=== PATIENT | female | born 1985 | race Asian ===

== ENCOUNTER 2019-05-23 18:33 | Outpatient (CLI) | payer OTHER ==
[2019-05-23 19:16] LABS: BASOPHILS % (AUTO) 0.3 % (0.0-2.0); EOSINOPHILS # (AUTO) 0.3 K/uL (0.0-0.4); EOSINOPHILS % (AUTO) 2.1 % (0.0-4.0); HEMATOCRIT 37.7 % (36-48); HEMOGLOBIN 12.5 g/dL (12.0-16.0); LYMPHOCYTES # (AUTO) 2.8 K/uL (1.0-5.5); LYMPHOCYTES % (AUTO) 22.2 % (20.5-51.5); MEAN CORPUSCULAR HEMOGLOBIN 29 pg (27-31); MEAN CORPUSCULAR HGB CONC 33 % (32-36); MEAN CORPUSCULAR VOLUME 88 fL (79.0-98.0); MONOCYTES # (AUTO) 0.8 K/uL (0.0-1.0); MONOCYTES % (AUTO) 6.3 % (1.7-9.3); NEUTROPHILS # (AUTO) 8.8 K/uL (1.8-7.7); NEUTROPHILS % (AUTO) 69.1 % (40.0-70.0); PLATELET COUNT (AUTO) 296 K/uL (130-430); RED BLOOD CELL COUNT(AUTO) 4.29 MIL/uL (4.2-6.2); RED CELL DISTRIBUTION WIDTH 13.7 % (9.0-15.0); WHITE BLOOD COUNT (AUTO) 12.7 K/uL (4.8-10.8)
[2019-05-25 08:17] LABS: HEPATITIS B SURFACE AG Negative (Negative)
[2019-05-25 12:37] LABS: RUBELLA AB, IgG <0.90 index (Immune >0.99)
[2019-05-27 15:12] LABS: RUBELLA AB, IgM <20.0 AU/mL (0.0-19.9)
== END 2019-05-23 21:12 | disposition home or self-care (01) ==
LOC: SLB 18:33
PROVIDERS: ATTEND Specialist
DX: Z34.80 Encounter for supervision of other normal pregnancy, unspecified trimester (principal); Z3A.00 Weeks of gestation of pregnancy not specified
CPT/HCPCS: 36415; 85025; 86592; 86762; 86886; 86900; 86901; 87340

== ENCOUNTER 2019-09-02 13:24 | Inpatient (IN) | payer OTHER ==
[~2019-09-02] VITALS: Ht 165.1 cm; Wt 61.7 kg
[2019-09-02] MEDS ORDERED: OXYTOCIN/0.9 % SODIUM CHLORIDE 1,000 ML IV SCH (13:55)
[2019-09-02] MEDS ORDERED: LR 1,000 ML IV ONE (13:55)
[2019-09-02] MEDS ORDERED: LR 1,000 ML IV SCH (13:55)
[2019-09-02] MEDS ORDERED: AMPICILLIN SODIUM 2 GM in NS 100 ML IV ONE (14:00)
[2019-09-02] MEDS ORDERED: TERBUTALINE SULFATE 1 MG/ML VIAL SUBCUT ONE (14:00)
[2019-09-02] MEDS ORDERED: NALBUPHINE HCL 10 MG/ML AMP IVP PRN (14:00)
[2019-09-02 14:17] LABS: BASOPHILS # (AUTO) 0.1 K/uL (0.0-0.2); BASOPHILS % (AUTO) 0.5 % (0.0-2.0); EOSINOPHILS # (AUTO) 0.2 K/uL (0.0-0.4); EOSINOPHILS % (AUTO) 1.5 % (0.0-4.0); HEMATOCRIT 38.5 % (36-48); HEMOGLOBIN 13.3 g/dL (12.0-16.0); LYMPHOCYTES # (AUTO) 1.8 K/uL (1.0-5.5); LYMPHOCYTES % (AUTO) 14.4 % (20.5-51.5); MEAN CORPUSCULAR HEMOGLOBIN 30 pg (27-31); MEAN CORPUSCULAR HGB CONC 35 % (32-36); MEAN CORPUSCULAR VOLUME 86 fL (79.0-98.0); MONOCYTES # (AUTO) 1.3 K/uL (0.0-1.0); MONOCYTES % (AUTO) 10.1 % (1.7-9.3); NEUTROPHILS # (AUTO) 9.3 K/uL (1.8-7.7); NEUTROPHILS % (AUTO) 73.5 % (40.0-70.0); PLATELET COUNT (AUTO) 212 K/uL (130-430); RED BLOOD CELL COUNT(AUTO) 4.46 MIL/uL (4.2-6.2); RED CELL DISTRIBUTION WIDTH 12.7 % (9.0-15.0); WHITE BLOOD COUNT (AUTO) 12.7 K/uL (4.8-10.8)
[2019-09-02] MEDS ORDERED: AMPICILLIN SODIUM 2 GM VIAL ONE (14:31)
[2019-09-02] MEDS ORDERED: fentaNYL CITRATE/PF 100 MCG/2 ML AMP EP ONE (15:45)
[2019-09-02] MEDS ORDERED: FENT2mCg/mL-ROPIVA0.2%/NS EPID 200 ML EP SCH (15:45)
[2019-09-02] MEDS ORDERED: fentaNYL CITRATE/PF 100 MCG/2 ML AMP ONE (15:46)
[2019-09-02] MEDS ORDERED: ROPIVACAINE HCL/PF 0.2% 200 ML ONE (15:47)
[2019-09-02] MEDS ORDERED: LR 500 ML IV ONE (16:13)
[2019-09-02] MEDS ORDERED: ePHEDrine sulfate 50 MG/ML VIAL IVP PRN (16:15)
[2019-09-02 17:38] VITALS: BP_SYST 112
[2019-09-02] MEDS: AMPICILLIN SODIUM 1 GM in NS 50 ML IV SCH (18:14)
[2019-09-02] MEDS ORDERED: AMPICILLIN SODIUM 1 GM VIAL ONE (22:22)
[2019-09-03] MEDS: AMPICILLIN SODIUM 1 GM in NS 50 ML IV SCH ×2 (02:30→10:15)
[2019-09-03] MEDS ORDERED: ROPIVACAINE HCL/PF 0.2% 200 ML ONE (07:11)
[2019-09-03] MEDS: METHIMAZOLE 5 MG TABLET PO SCH ×2 (08:18→21:35)
[2019-09-03] MEDS ORDERED: OXYCODONE/ACETAMINOPHEN 5-325 TABLET ONE (12:52)
[2019-09-03] MEDS ORDERED: OXYTOCIN/0.9 % SODIUM CHLORIDE 1,000 ML IV ONE (15:17)
[2019-09-03] MEDS ORDERED: ANUSOL 1 EA SUPP.RECT (PREPARATION H) RC PRN (15:30)
[2019-09-03] MEDS ORDERED: LANOLIN 7 GM OINT. TP PRN (15:30)
[2019-09-03] MEDS ORDERED: RHO(D) IMMUNE GLOBULIN/MALTOSE 1500 UNITS/1.3 ML (WINHRO) IM PRN (15:30)
[2019-09-03] MEDS ORDERED: WITCH HAZEL LEAF 1 MED.PAD MED.PAD TP PRN (15:30)
[2019-09-03] MEDS ORDERED: HYDROcodone/ACETAMIN 5-325 MG TAB (NORCO/ VICODIN) PO PRN (15:30)
[2019-09-03] MEDS ORDERED: OXYCODONE/ACETAMINOPHEN 5-325 TABLET PO PRN ×2 (15:30)
[2019-09-03] MEDS ORDERED: DIPH-TET-PERTUS Vaccine 0.5 ML VIAL (ADACEL) I.M. PRN (15:30)
[2019-09-03] MEDS ORDERED: MEASLES,MUMPS&RUBELLA VACC/PF 12500 UNIT/0.5 ML VIAL SUBQ PRN (15:30)
[2019-09-03] MEDS ORDERED: DERMOPLAST SPRAY TP PRN (15:30)
[2019-09-03] MEDS ORDERED: WITCH HAZEL LEAF 1 MED.PAD MED.PAD TP ONE (15:39)
[2019-09-03] MEDS ORDERED: DERMOPLAST SPRAY TP ONE (15:39)
[2019-09-03] MEDS: IBUPROFEN 600 MG TABLET PO SCH ×2 (18:12→23:40)
[2019-09-03] MEDS: DOCUSATE SODIUM 100 MG CAPSULE PO PRN (18:12)
[2019-09-03] MEDS ORDERED: TEMAZEPAM 15 MG CAPSULE PO PRN (21:00)
[2019-09-03] MEDS ORDERED: MEPERIDINE HCL/PF 100 MG/ML AMP IM PRN (21:15)
[2019-09-04] MEDS: IBUPROFEN 600 MG TABLET PO SCH ×4 (05:59→23:51)
[2019-09-04 07:05] LABS: BASOPHILS % (AUTO) 0.2 % (0.0-2.0); EOSINOPHILS # (AUTO) 0.5 K/uL (0.0-0.4); EOSINOPHILS % (AUTO) 2.8 % (0.0-4.0); HEMATOCRIT 33.2 % (36-48); HEMOGLOBIN 11.3 g/dL (12.0-16.0); LYMPHOCYTES # (AUTO) 3.2 K/uL (1.0-5.5); LYMPHOCYTES % (AUTO) 19.8 % (20.5-51.5); MEAN CORPUSCULAR HEMOGLOBIN 30 pg (27-31); MEAN CORPUSCULAR HGB CONC 34 % (32-36); MEAN CORPUSCULAR VOLUME 87 fL (79.0-98.0); MONOCYTES # (AUTO) 1.7 K/uL (0.0-1.0); MONOCYTES % (AUTO) 10.2 % (1.7-9.3); NEUTROPHILS # (AUTO) 10.9 K/uL (1.8-7.7); PLATELET COUNT (AUTO) 176 K/uL (130-430); RED BLOOD CELL COUNT(AUTO) 3.81 MIL/uL (4.2-6.2); RED CELL DISTRIBUTION WIDTH 12.6 % (9.0-15.0); WHITE BLOOD COUNT (AUTO) 16.3 K/uL (4.8-10.8)
[2019-09-04] MEDS: DOCUSATE SODIUM 100 MG CAPSULE PO PRN ×2 (10:41→23:50)
[2019-09-04] MEDS: METHIMAZOLE 5 MG TABLET PO SCH (10:41)
[2019-09-05] MEDS: IBUPROFEN 600 MG TABLET PO SCH ×3 (06:37→18:24)
[2019-09-05] MEDS: METHIMAZOLE 5 MG TABLET PO SCH (09:46)
[2019-09-05] MEDS: SENNOSIDES/DOCUSATE SODIUM 1 TAB TABLET(SENOKOT-S) PO PRN ×2 (12:19→18:24)
[2019-09-05] MEDS: DOCUSATE SODIUM 100 MG CAPSULE PO PRN ×2 (12:19→18:25)
[2019-09-05] MEDS ORDERED: ROPIVACAINE 40 MG/20 ML AMP EP ONE (12:27)
[2019-09-05] MEDS ORDERED: MINERAL OIL 30 ML UDC PO ONE (12:29)
[2019-09-05] MEDS ORDERED: FLU VACC QUAD 2019-20(36MOS UP) 60 MCG/0.5 ML SYRINGE I.M. ONE (18:27)
== END 2019-09-05 19:32 | disposition home or self-care (01) | DRG 807 ==
LOC: OBSVTOIN 13:24 → SPU 13:24
PROVIDERS: ADMIT Specialist; ATTEND Specialist
PROC: 10E0XZZ Delivery of Products of Conception, External Approach (ICD-10-PCS; principal; 2019-09-04)
PROC: 3E0R3BZ Introduction of Anesthetic Agent into Spinal Canal, Percutaneous Approach (ICD-10-PCS; 2019-09-04)
PROC: 00HU33Z Insertion of Infusion Device into Spinal Canal, Percutaneous Approach (ICD-10-PCS; 2019-09-04)
PROC: 0HQ9XZZ Repair Perineum Skin, External Approach (ICD-10-PCS; 2019-09-04)
DX: O70.9 Perineal laceration during delivery, unspecified (principal); Z37.0 Single live birth; O99.284 Endocrine, nutritional and metabolic diseases complicating childbirth; Z3A.36 36 weeks gestation of pregnancy; M70.62 Trochanteric bursitis, left hip; O75.89 Other specified complications of labor and delivery
CPT/HCPCS: 36415; 81002-TC; 85025; 86592; 86886; 86900; 86901; J0290; J2300; J2590; J2795; J3010; J7120; Q2037

== ENCOUNTER 2021-05-12 13:43 | Outpatient (CLI) | payer OTHER | END 2021-05-12 20:27 | disposition home or self-care (01) | LOC: SMA 13:43 | PROVIDERS: ATTEND Specialist | DX: R92.2 Inconclusive mammogram (principal) | CPT/HCPCS: 77066 ==

== ENCOUNTER 2023-04-03 16:13 | Observation (INO) | payer OTHER ==
[~2023-04-03] VITALS: Ht 165.1 cm; Wt 50.8 kg
[2023-04-03] MEDS: D5/0.45 NS 1,000 ML IV ONE ×2 (16:25→17:58)
[2023-04-03] MEDS ORDERED: ONDANSETRON HCL 4 MG/2 ML VIAL IVP PRN (16:30)
[2023-04-03] MEDS ORDERED: D5NS 500 ML IV ONE (16:45)
[2023-04-03] MEDS ORDERED: D5NS 1,000 ML IV ONE (17:45)
== END 2023-04-03 20:15 | disposition home or self-care (01) ==
LOC: SPU 16:13
PROVIDERS: ADMIT Specialist; ATTEND Specialist
DX: O21.0 Mild hyperemesis gravidarum (principal); Z3A.13 13 weeks gestation of pregnancy
CPT/HCPCS: 96374; 96361; G0379; J2405; J7042; G0378